=== PATIENT | female | born 1965 | race Caucasian/White ===

== ENCOUNTER 2017-01-08 15:53 | Emergency (ER) | payer OTHER ==
[~2017-01-08] VITALS: Ht 157.5 cm; Wt 63.6 kg
[2017-01-08 15:55] VITALS: Ht 157.5 cm; Wt 63.6 kg
[2017-01-08] MEDS ORDERED: morphine 4 MG/ML VIAL IV STA (16:06)
[2017-01-08] MEDS ORDERED: SOD CHLORIDE 0.9% 1,000 ML IV STA (16:06)
[2017-01-08] MEDS ORDERED: ONDANSETRON 4 MG INJ IV STA (16:06)
[2017-01-08 16:23] LABS: BASOPHIL # 0.1 10^3/ul (0.0-0.1); BASOPHILS % 0.5 % (0.0-2.0); EOSINOPHILS # 0.2 10^3/ul (0.0-0.5); EOSINOPHILS % 1.6 % (0.0-7.0); HEMOGLOBIN 13.5 g/dl (12.0-16.0); LYMPHOCYTES # 4.6 10^3/ul (0.8-2.9); LYMPHOCYTES % 43.3 % (15.0-51.0); MEAN CORPUSCULAR HEMOGLOBIN 27.4 pg (29.0-33.0); MEAN CORPUSCULAR HGB CONC 33.8 g/dl (32.0-37.0); MEAN CORPUSCULAR VOLUME 81.1 fl (82.0-101.0); MEAN PLATELET VOLUME 10.1 fl (7.4-10.4); MONOCYTE # 0.5 10^3/ul (0.3-0.9); MONOCYTES % 4.3 % (0.0-11.0); NEUTROPHIL # 5.3 10^3/ul (1.6-7.5); PLATELET COUNT 324 10^3/UL (140-415); RED BLOOD COUNT 4.93 10^6/ul (4.20-5.40); WHITE BLOOD COUNT 10.6 10^3/ul (4.8-10.8)
[2017-01-08] MEDS ORDERED: METOPROLOL 5 MG INJ IV ONE (16:30)
[2017-01-08 16:45] LABS: ANION GAP 17 (8-16); BLOOD UREA NITROGEN 8 mg/dl (7-20); CALCIUM 9.1 mg/dl (8.4-10.2); CARBON DIOXIDE 24 mmol/L (21-31); CHLORIDE 102 mmol/L (97-110); CREATININE 0.62 mg/dl (0.44-1.00); GLUCOSE 299 mg/dl (70-220); POTASSIUM 3.7 mmol/L (3.5-5.1); SODIUM 139 mmol/L (135-144)
--- NOTE | 2017-01-08 16:46 | RADRPT ---
PROCEDURE: XR Chest. CLINICAL INDICATION: Chest pain. TECHNIQUE: Single frontal view. COMPARISON: None. FINDINGS: The lungs are clear. The heart size is normal. There is no pleural effusion. There is no pneumothorax. IMPRESSION: 1. Normal chest radiograph. RPTAT: QQ .Addy Wilson MD, Date Time Electronically viewed and signed by .Addy Wilson MD, on 01/08/2017 16:46 .R/
[2017-01-08 17:12] LABS: TROPONIN-I < 0.012 ng/ml (0.00-0.12)
[2017-01-08] MEDS ORDERED: SOD CHLORIDE 0.9% 100 ML ONE (17:56)
[2017-01-08] MEDS ORDERED: IODIXANOL LOCM 100 ML BTL ONE (17:56)
--- NOTE | 2017-01-08 18:18 | RADRPT ---
PROCEDURE: CT Pulmonary Angiogram. CLINICAL INDICATION: Chest pain and shortness of breath. TECHNIQUE: CT pulmonary angiogram and a CT scan of the chest with contrast was performed. The pat ient was scanned following the uncomplicated intravenous administration of 100 cc of Visipaque 320 i ntravenous contrast. 2-D coronal reformatted images were obtained from the axial source images. In addition, 3-D post processing was performed. Total exam DLP is 390.87 mGy-cm. CTDIvol is 28.17 mG y. One or more of the following dose reduction techniques were used: Automated exposure control, ad justment of the mA and/or kV according to patient size, use of iterative reconstruction technique. COMPARISON: Chest x-ray done earlier the same day. FINDINGS: The pulmonary arteries are normal with no filling defect or lack of enhancement to suggest pulmonary artery embolism. The lungs are clear. There is no pulmonary airspace or interstitial disease. There is no pulmonary nodule or mass lesion. There is no pneumothorax. There is no mediastinal or hilar lymphadenopathy or mass. There is no pleural effusion. There is no pericardial effusion. The thoracic aorta is normal with no aneurysm or dissection. There is calcification in the aorta con sistent with atherosclerosis. Images through the upper abdomen demonstrate normal visualized portions of the liver, spleen, and ad renals. The osseous structures are normal with no fracture or lytic lesion. IMPRESSION: 1. Normal CT pulmonary angiogram with no evidence of pulmonary artery embolism. 2. Atherosclerosis. 3. Otherwise normal CT scan of the chest. RPTAT: QQ .Addy Wilson MD, Date Time Electronically viewed and signed by .Addy Wilson MD, MD on 01/08/2017 18:18 .R/
--- NOTE | 2017-01-08 18:39 | ERD ---
ER Documentation Chief Complaint Date/Time DATE: 01/08/17 TIME: 18:36 Chief Complaint CP radiating to right arm & ears, HTN, pt took 2nitros just before arrival HPI This is a 51 year-old female with a history of hypertension and diabetes presents to the emergency room for evaluation of high blood pressure, and chest pain. The patient states that she took her medicine this morning however she has been extremely stressed out and came to the emergency room for evaluation of her symptoms. She describes her chest pain as an aching sensation located in the center of her chest with mild radiation to the right arm. She denies any nausea or shortness of breath associated with this and came to the ER for further ROS All systems reviewed and are negative except as per history of present illness. PMhx/Soc History of Surgery: Yes () Anesthesia Reaction: No Hx Neurological Disorder: No Hx Respiratory Disorders: No Hx Cardiac Disorders: Yes (HTN, HIGH CHOLESTEROL, ANGINA) Hx Psychiatric Problems: No Hx Miscellaneous Medical Probl: Yes (DM) Hx Alcohol Use: Yes (SOCIAL) Hx Substance Use: No Hx Tobacco Use: No Smoking Status: Never smoker Physical Exam Vitals Vital Signs Date Time Temp Pulse Resp B/P Pulse Ox O2 Delivery O2 Flow Rate FiO2 01/08/17 17:36 72 16 112/80 99 Room Air 01/08/17 15:55 98.2 124 20 235/126 97 Physical Exam INITIAL VITAL SIGNS: Reviewed by me GENERAL: The patient is well developed and appropriate for usual state of health in no apparent distress HEENT: Pupils equal, round, and reactive to light. EOMI. There is no scleral icterus. NECK: C-spine is soft and supple, there is no meningismus. There is no cervical lymphadenopathy. LUNGS: Clear to auscultation bilaterally. There are no rales, wheezes or rhonchi. HEART: Tachycardic, no murmurs, clicks, rubs or gallops. ABDOMEN: Soft, non-tender, non-distended. There are bowel sounds in all four quadrants. No rebound or guarding. EXTREMITIES: There is no peripheral cyanosis or edema. No focal swelling or erythema. NEUROLOGICAL: The patient moves all four extremities with 5/5 strength. Cranial nerves II - XII are intact. Normal gait. Alert and oriented SKIN: There is no apparent rash or petechiae. HEME/LYMPHATIC: There is no evidence of excessive bruising or lymphedema. PSYCHIATRIC: The patient does not appear anxious or depressed. Result Diagram: 01/08/17 1608 01/08/17 1608 Results 24 hrs Laboratory Tests Test 01/08/17 16:08 White Blood Count 10.610^3/ul Red Blood Count 4.9310^6/ul Hemoglobin 13.5g/dl Hematocrit 40.0% Mean Corpuscular Volume 81.1fl Mean Corpuscular Hemoglobin 27.4pg Mean Corpuscular Hemoglobin Concent 33.8g/dl Red Cell Distribution Width 15.0% Platelet Count 58162^3/UL Mean Platelet Volume 10.1fl Neutrophils % 50.0% Lymphocytes % 43.3% Monocytes % 4.3% Eosinophils % 1.6% Basophils % 0.5% Nucleated Red Blood Cells % 0.0/100WBC Neutrophils # 5.310^3/ul Lymphocytes # 4.610^3/ul Monocytes # 0.510^3/ul Eosinophils # 0.210^3/ul Basophils # 0.110^3/ul Nucleated Red Blood Cells # 0.010^3/ul Activated Partial Thromboplast Time 29.0Sec Sodium Level 139mmol/L Potassium Level 3.7mmol/L Chloride Level 102mmol/L Carbon Dioxide Level 24mmol/L Anion Gap 17 Blood Urea Nitrogen 8mg/dl Creatinine 0.62mg/dl Glucose Level 299mg/dl Calcium Level 9.1mg/dl Troponin I < 0.012ng/ml Lipase 172U/L Current Medications Medications (Trade) Dose Ordered Sig/Deisi Route PRN Reason Start Time Stop Time Status Last Admin Dose Admin Sodium Chloride (NS) 1,000 ml @ 1,000 mls/hr Q1H STAT IV 01/08/17 16:06 01/08/17 17:05 DC 01/08/17 16:15 Morphine Sulfate (morphine) 4 mg ONCE STAT IV 01/08/17 16:06 01/08/17 16:08 DC 01/08/17 16:15 Ondansetron HCl (Zofran Inj) 4 mg ONCE STAT IV 01/08/17 16:06 01/08/17 16:08 DC 01/08/17 16:15 Metoprolol Tartrate (Lopressor) 2.5 mg ONCE ONCE IV 01/08/17 16:30 01/08/17 16:31 DC 01/08/17 16:27 IV Flush 10 ml 10 ml STK-MED ONCE .ROUTE 01/08/17 17:56 01/08/17 17:57 DC 01/08/17 18:06 Sodium Chloride (NS) 100 ml @ ud STK-MED ONCE .ROUTE 01/08/17 17:56 01/08/17 17:57 DC 01/08/17 18:07 Iodixanol (Visipaque Locm) 100 ml STK-MED ONCE .ROUTE 01/08/17 17:56 01/08/17 17:57 DC 01/08/17 18:07 Procedures/MDM EKG: Rate/Rhythm: [Normal Sinus Rhythm] QRS, ST, T-waves: [No changes consistent w/ acute ischemia] Impression: [No evidence of ischemia or arrhythmia] Chest X-ray 1V Interpreted by me: Soft Tissue: No acute abnormalities Bones: No acute abnormalities Mediastinum/Cardiac Silhouette/Lungs: [No acute abnormalities] CT angiography chest: No PE This 51-year-old female presents to the ER for evaluation of chest pain and hypertension. When I evaluated this patient she was hypertensive with a blood pressure 232/108. She was tachycardic with a rate of 126 bpm. She is not hypoxic however she did state that she had recently came back from a bus ride from [place]. This patient did have lab work drawn which did not show an elevated troponin. The patient was given 2.5 mg of Lopressor IV and when I reevaluated this patient the patient's blood pressure was 128/80 and her heart rate was 72 bpm. She states she is feeling much better. His CT angiogram was obtained to rule out pulmonary embolism which came back normal. This patient will be discharged at this time with instructions to return to the ER any point if she develops chest pain. I feel her chest pain is secondary to her uncontrolled hypertension. Departure Diagnosis: Primary Impression: Chest pain Additional Impression: Uncontrolled hypertension Condition: Stable MELANIE MARINELLI DO Jan 08, 2017 18:39
[2017-01-08 18:50] VITALS: BP 169/89; PULSE 79; RESP 14; TEMP 98.2
== END 2017-01-08 18:50 | disposition home or self-care (01) ==
LOC: E/R 15:53
DX: R07.9 Chest pain, unspecified (principal); I10 Essential (primary) hypertension; E11.9 Type 2 diabetes mellitus without complications
CPT/HCPCS: 36415; 71010; 71275; 80048; 83690; 84484; 85025; 85730; 93005; 96374; 96375; J2270; J2405; J7030; Q9967; Z7502; Z7610

== ENCOUNTER 2017-01-13 23:00 | Inpatient (IN) | payer OTHER ==
[~2017-01-13] VITALS: Ht 154.9 cm; Wt 72.4 kg
[2017-01-14] VITALS (16 sets, daily range): BP systolic 131–179; BP diastolic 68–83; PULSE 44–65; RESP 14–19; Ht 154.9 cm; Wt 72.4 kg
[2017-01-14] MEDS ORDERED: NITROGLYCERIN (SL) 0.4 MG TAB SL PRN (02:30)
[2017-01-14] MEDS ORDERED: NACL 0.9% 3 ML SYG IV SCH (02:30)
[2017-01-14] MEDS ORDERED: DOCUSATE SODIUM 100 MG CAP PO PRN (02:30)
[2017-01-14] MEDS ORDERED: ZOLPIDEM 5 MG TAB PO PRN (02:30)
[2017-01-14] MEDS ORDERED: ONDANSETRON 4 MG TAB PO PRN (02:30)
[2017-01-14] MEDS: FAMOTIDINE 20 MG TAB PO SCH ×3 (02:49→20:54)
[2017-01-14] MEDS ORDERED: LANT3I SC (05:08)
[2017-01-14] MEDS ORDERED: ATOR20TA38 PO (05:08)
[2017-01-14] MEDS ORDERED: INSU100C SQ (05:08)
[2017-01-14] MEDS ORDERED: METF850T PO (05:08)
[2017-01-14] MEDS ORDERED: ASPI-664 PO (05:08)
[2017-01-14] MEDS ORDERED: LOSA50TA6 PO (05:08)
[2017-01-14] MEDS ORDERED: NITR0.4T32 SL (05:08)
[2017-01-14] MEDS ORDERED: CLON-379 PO (05:08)
--- NOTE | 2017-01-14 06:49 | HP ---
Date/Time of Note Date/Time of Note DATE: 01/14/17 TIME: 06:44 Assessment/Plan VTE Prophylaxis VTE Prophylaxis Intervention: LMWH Lines/Catheters IV Catheter Type [facility]from [facility] Urinary Cath still in place: No Assessment/Plan Assessment/Plan [facility] 51yo woman with three episodes of chest pressure and associated dyspnea the past week. Never smoked, but has insulin-dependent diabetes. Atypical pain appears to be related to left-sided costochondritis, with poor sleep the past two weeks in relation to her brother's CABG. His experience may have suggested to her the possibility of her having heart disease. No fibromyalgia tender point pattern on exam, but the left chest tenderness appears to reproduce her pain. Nonetheless, her relatively poor control of her diabetes and family history of hyperlipidemia (brother, mother) pose risk for subclinical coronary disease. * Place under telemetry observation * Serial troponins * Cardiology consultation * NPO for possible stress echo * Lipid panel pending * Full-code * Lovenox 40mg SQ for DVT prophylaxis * Accuchecks qAC and qHS * A1c pending * Famotidine PO BID for GI protection Galo Mcadams MD PhD [phone] HPI/ROS Admit Date/Time Admit Date/Time Jan 14, 2017 at 01:10 Hx of Present Illness 51yo woman who developed acute onset of chest pressure and dyspnea at 1600h yesterday while she was outside with her grandchildren. Transported by private car to the [facility] ER at 1723h. EKG showed normal sinus rhythm with no acute ischemic changes. Troponin negative. She was transferred at 0200h today [facility]. Evaluated here with similar symptoms on 01/08/17. CT-angiogram negative for pulmonary embolism then. EKG, troponins normal. She had another episode three days ago, with similar dyspnea and left chest pressure. Resolved completely after one SL nitroglycerine. She mentioned that her oldest brother (age 71) had CABG two weeks ago, which has been very stressful. ROS No nausea, weakness, visual change, or change in sensation. PMH/Family/Social Past Medical History Medical History: diabetes Past Surgical History Past Surgical Hx: other (, resection of a left upper back cyst) Family History Significant Family History: heart disease (71yo brother), hypertension (88yo mother, who also has hyperlipidemia), other (Father at 68 of unknown causes.) Social History She cares for her grandchildren, mostly. Lives with her and 35yo son, both of which are in poor health. Has three other children. Smoking Status: Never smoker Exam/Review of Systems Vital Signs Vitals Vital Signs Date Time Temp Pulse Resp B/P Pulse Ox O2 Delivery O2 Flow Rate FiO2 01/14/17 04:11 61 01/14/17 03:57 99.6 18 150/81 95 01/14/17 01:10 Room Air Exam Constitutional: alert, oriented Psych: anxiety (mild since her brother's surgery), no complaints Head: atraumatic, normocephalic Eyes: EOMI, PERRL, nl conjunctiva, nl sclera ENMT: mucosa pink and moist Neck: non-tender, supple, No bruits, No jvd, No masses, No nuchal rigidity, No thyromegaly Respiratory: clear to auscultation, normal air movement, other (She had mild left chest tenderness over the chondrosternal joints that she said reproduced her pain), No congested cough, No crackles/rales, No diminished breath sounds, No intercostal retraction, No labored breathing, No respirations, No wheezing Cardiovascular: nl pulses, regular rate and rhythm, No bruits, No diastolic murmur, No edema, No gallop, No irregular rhythm, No jugular venous distention (JVD), No murmurs/extra sounds, No rub, No systolic murmur Gastrointestinal: bowel sounds, nl liver, spleen, non-tender, soft, No ascites, No distended, No firm, No hepatomegaly, No mass, No rebound or guarding, No splenomegaly, No surgical scars, No tender Genitourinary - Female: No CVA tenderness Musculoskeletal: muscle tone (normal), nl extremities to inspection, range of motion (Normal), No joint tenderness, No muscle weakness, No spine non-tender, No swelling Extremities: normal pulses, No calf tenderness, No clubbing, No cyanosis, No edema, No palpable cord, No pitting pedal edema, No tenderness Neurological: ENGINE MONITOR II-XII intact, nl mental status, nl speech, nl strength Skin: nl turgor, No diaphoresis, No ecchymosis, No laceration, No puncture, No rash or lesions Lymph: nl lymph nodes Medications Medications Current Medications Ondansetron HCl (Zofran Tab) 4 mg Q6H PRN PO NAUSEA AND/OR VOMITING; Start 01/14/17 at 02:30 Aspirin (Aspirin) 81 mg DAILY PO ; Start 01/14/17 at 09:00 Nitroglycerin (Nitroglycerin (Sl Tab) 0.4 Mg) 1 tab Q5M PRN SL CHEST PAIN; Start 01/14/17 at 02:30 Acetaminophen (Tylenol Tab) 650 mg Q6H PRN PO PAIN LEVEL 1-3 OR FEVER; Start 01/14/17 at 02:30 Acetaminophen/ Hydrocodone Bitart ([place] (5/325)) 1 tab Q6H PRN PO PAIN LEVEL 4 -6; Start 01/14/17 at 02:30 Zolpidem Tartrate (Ambien) 5 mg QHS PRN PO INSOMNIA; Start 01/14/17 at 02:30 Docusate Sodium (Colace) 100 mg Q12H PRN PO CONSTIPATION; Start 01/14/17 at 02: 30 Famotidine (Pepcid) 20 mg Q12 PO Last administered on 01/14/17t 02:49; Admin Dose 20 MG; Start 01/14/17 at 02:30 Enoxaparin Sodium (Lovenox) 40 mg DAILY SC ; Start 01/14/17 at 09:00 Diagnostic Test (Pha) (Accu-Chek) 1 ea 02 XX ; Start 01/15/17 at 02:00 Insulin Glargine (Lantus) 20 unit HS SC ; Start 01/14/17 at 21:00 Losartan Potassium (Cozaar) 50 mg BID PO ; Start 01/14/17 at 09:00 Atorvastatin Calcium (Lipitor) 20 mg HS PO ; Start 01/14/17 at 21:00 Clonidine (Catapres) 0.1 mg BID PO ; Start 01/14/17 at 09:00 MAGED MCADAMS M.D. Jan 14, 2017 06:49
[2017-01-14 07:40] LABS: WHITE BLOOD COUNT 7.3 10^3/ul (4.8-10.8)
[2017-01-14 07:41] LABS: BASOPHILS % 0.4 % (0.0-2.0); EOSINOPHILS # 0.1 10^3/ul (0.0-0.5); EOSINOPHILS % 1.7 % (0.0-7.0); HEMATOCRIT 36.4 % (37.0-47.0); HEMOGLOBIN 12.1 g/dl (12.0-16.0); LYMPHOCYTES # 2.8 10^3/ul (0.8-2.9); LYMPHOCYTES % 37.8 % (15.0-51.0); MEAN CORPUSCULAR HEMOGLOBIN 27.4 pg (29.0-33.0); MEAN CORPUSCULAR HGB CONC 33.2 g/dl (32.0-37.0); MEAN CORPUSCULAR VOLUME 82.5 fl (82.0-101.0); MEAN PLATELET VOLUME 10.4 fl (7.4-10.4); MONOCYTE # 0.4 10^3/ul (0.3-0.9); MONOCYTES % 6.1 % (0.0-11.0); NEUTROPHIL # 3.9 10^3/ul (1.6-7.5); NEUTROPHILS % 53.7 % (39.0-77.0); PLATELET COUNT 281 10^3/UL (140-415); RED BLOOD COUNT 4.41 10^6/ul (4.20-5.40); RED CELL DISTRIBUTION WIDTH 15.3 % (11.5-14.5)
[2017-01-14 07:55] LABS: CREATINE KINASE 48 IU/L (23-200)
[2017-01-14] MEDS: INSULIN ASPART [NOVOLOG] 3 ML PEN SC SCH ×3 (07:55→16:36)
[2017-01-14 07:57] LABS: CALCIUM 8.3 mg/dl (8.4-10.2); CREATININE 0.57 mg/dl (0.44-1.00); POTASSIUM 3.7 mmol/L (3.5-5.1)
[2017-01-14 08:08] LABS: CK-MB 0.59 ng/ml (0.0-2.4); TROPONIN-I < 0.012 ng/ml (0.00-0.12)
[2017-01-14 08:09] LABS: CHOL/HDL RATIO 2.3 RATIO
[2017-01-14 08:21] LABS: INR 1.04; PROTIME 13.6 Sec (12.2-14.2); PT RATIO 1.1
[2017-01-14 08:22] LABS: PARTIAL THROMBOPLASTIN TIME 33.2 Sec (25.0-35.0)
[2017-01-14 08:32] LABS: D-DIMER 303.4 ng/ml (<460)
[2017-01-14] MEDS: ASPIRIN 81 MG TAB PO SCH (08:42)
[2017-01-14] MEDS: LOSARTAN 50 MG TAB PO SCH ×2 (08:43→20:55)
[2017-01-14 08:48] LABS: THYROID STIMULATING HORMONE 2.55 MIU/L (0.465-4.680)
[2017-01-14] MEDS: ENOXAPARIN 40 MG/0.4 ML SYG SC SCH (08:52)
[2017-01-14 11:12] LABS: UR BACTERIA FEW /HPF (NONE SEEN); UR MUCUS FEW /HPF (NONE SEEN); UR RBC 1 /HPF (0-5); UR SQUAMOUS EPITHELIAL CELL FEW /HPF (FEW)
[2017-01-14 11:21] LABS: ADD UMIC YES; UR ASCORBIC ACID 20 mg/dL (NEGATIVE); UR BILIRUBIN (Dip) NEGATIVE (NEGATIVE); UR BLOOD (Dip) NEGATIVE (NEGATIVE); UR CLARITY CLOUDY (CLEAR); UR COLOR YELLOW (YELLOW); UR GLUCOSE (Dip) 3+ mg/dL (NEGATIVE); UR KETONES (Dip) NEGATIVE (NEGATIVE); UR LEUKOCYTE ESTERASE (Dip) TRACE Leu/ul (NEGATIVE); UR NITRITE (Dip) POSITIVE (NEGATIVE); UR SPECIFIC GRAVITY (Dip) 1.014 (1.003-1.030); UR TOTAL PROTEIN (Dip) NEGATIVE (NEGATIVE); UR UROBILINOGEN (Dip) NEGATIVE (NEGATIVE)
[2017-01-14 13:24] LABS: CREATINE KINASE 47 IU/L (23-200)
[2017-01-14 13:37] LABS: CK-MB 0.46 ng/ml (0.0-2.4)
[2017-01-14 13:38] LABS: TROPONIN-I < 0.012 ng/ml (0.00-0.12)
[2017-01-14] MEDS: metFORMIN 850 MG TAB PO SCH (17:46)
--- NOTE | 2017-01-14 19:14 | PDOCDIS ---
Discharge Instructions DIAGNOSIS Discharge Diagnosis Left-chest costochondritis CONDITION Patient Condition: Good HOME CARE INSTRUCTIONS: Diet Instructions: 2gm NaSpecial Diet: NPO ACTIVITY: Activity Restrictions: Slowly Increase Activity FOLLOW UP/APPOINTMENTS Follow-up Plan PCP in the next week MAGED BOWER M.D. Jan 14, 2017 19:14
[2017-01-14] MEDS: HYDROCODONE/APAP (5/325) TAB PO PRN (20:55)
[2017-01-14] MEDS: INSULIN GLARGINE [LANtus] 3 ML PEN SC SCH (21:57)
[2017-01-14] MEDS: ATORVASTATIN 20 MG TAB PO SCH (21:58)
[2017-01-15] VITALS (13 sets, daily range): BP systolic 101–155; BP diastolic 58–89; PULSE 59–85; RESP 18–19
[2017-01-15] MEDS: ACCU-CHEK XX SCH (02:05)
[2017-01-15 06:42] LABS: PARTIAL THROMBOPLASTIN TIME 32.3 Sec (25.0-35.0)
[2017-01-15 07:05] LABS: INR 1.03; PROTIME 13.5 Sec (12.2-14.2); PT RATIO 1.1
[2017-01-15] MEDS: INSULIN ASPART [NOVOLOG] 3 ML PEN SC SCH ×3 (07:55→17:04)
[2017-01-15] MEDS: metFORMIN 850 MG TAB PO SCH ×2 (08:49→16:55)
[2017-01-15] MEDS: LOSARTAN 50 MG TAB PO SCH ×2 (08:49→20:23)
[2017-01-15] MEDS: ASPIRIN 81 MG TAB PO SCH (08:49)
[2017-01-15] MEDS: FAMOTIDINE 20 MG TAB PO SCH ×2 (08:50→20:24)
[2017-01-15] MEDS: ENOXAPARIN 40 MG/0.4 ML SYG SC SCH (09:01)
[2017-01-15 10:35] LABS: BASOPHIL # 0.1 10^3/ul (0.0-0.1); BASOPHILS % 0.6 % (0.0-2.0); EOSINOPHILS # 0.2 10^3/ul (0.0-0.5); EOSINOPHILS % 1.9 % (0.0-7.0); HEMATOCRIT 37.1 % (37.0-47.0); HEMOGLOBIN 12.1 g/dl (12.0-16.0); LYMPHOCYTES # 2.8 10^3/ul (0.8-2.9); LYMPHOCYTES % 35.6 % (15.0-51.0); MEAN CORPUSCULAR HEMOGLOBIN 27.5 pg (29.0-33.0); MEAN CORPUSCULAR HGB CONC 32.6 g/dl (32.0-37.0); MEAN CORPUSCULAR VOLUME 84.3 fl (82.0-101.0); MEAN PLATELET VOLUME 10.7 fl (7.4-10.4); MONOCYTE # 0.5 10^3/ul (0.3-0.9); MONOCYTES % 6.2 % (0.0-11.0); NEUTROPHIL # 4.4 10^3/ul (1.6-7.5); NEUTROPHILS % 55.4 % (39.0-77.0); PLATELET COUNT 296 10^3/UL (140-415); RED CELL DISTRIBUTION WIDTH 15.3 % (11.5-14.5); WHITE BLOOD COUNT 7.9 10^3/ul (4.8-10.8)
[2017-01-15 11:44] LABS: ANION GAP 10 (8-16); BLOOD UREA NITROGEN 10 mg/dl (7-20); CALCIUM 8.6 mg/dl (8.4-10.2); CARBON DIOXIDE 27 mmol/L (21-31); CHLORIDE 104 mmol/L (97-110); CREATININE 0.55 mg/dl (0.44-1.00); GLUCOSE 212 mg/dl (70-220); POTASSIUM 3.8 mmol/L (3.5-5.1); SODIUM 137 mmol/L (135-144)
[2017-01-15] MEDS ORDERED: NITROGLYCERIN 2% 1 GM OINT PKT TD SCH (12:00)
[2017-01-15 12:02] LABS: TROPONIN-I < 0.012 ng/ml (0.00-0.12)
--- NOTE | 2017-01-15 16:25 | CONS ---
Date/Time of Note Date/Time of Note DATE: 01/15/17 TIME: 16:20 Assessment/Plan Assessment/Plan Additional Assessment/Plan Atypical chest pain with cardiac risk factors Musculoskeletal pain/Costochondritis Hypertensive Urgency resolved Diabetes Hypertension Dyslipidemia Started on Imdur Continue losartan Continue Clonidine Continue Insulin Continue Lipitor Scheduled for stress test AM and discharge of negative for ischemia Consultation Date/Type/Reason Admit Date/Time Jan 14, 2017 at 01:10 Initial Consult Date Exam/Review of Systems Vital Signs Vitals Vital Signs Date Time Temp Pulse Resp B/P Pulse Ox O2 Delivery O2 Flow Rate FiO2 01/15/17 16:11 73 01/15/17 13:40 98.0 18 155/89 98 01/14/17 01:10 Room Air Intake and Output 01/14/17 01/14/17 01/15/17 15:00 23:00 07:00 Intake Total 600 ml Balance 600 ml Exam Constitutional: alert, oriented Head: atraumatic, normocephalic Neck: non-tender, supple Respiratory: clear to auscultation Cardiovascular: regular rate and rhythm Gastrointestinal: nl liver, spleen, non-tender, soft Extremities: normal pulses Results Result Diagram: 01/15/17 0549 01/15/17 1052 Results 24 hrs Laboratory Tests Test 01/14/17 16:32 01/14/17 20:52 01/15/17 05:49 01/15/17 05:51 Bedside Glucose 236 H 180 White Blood Count 7.9 Red Blood Count 4.40 Hemoglobin 12.1 Hematocrit 37.1 Mean Corpuscular Volume 84.3 Mean Corpuscular Hemoglobin 27.5 L Mean Corpuscular Hemoglobin Concent 32.6 Red Cell Distribution Width 15.3 H Platelet Count 296 Mean Platelet Volume 10.7 H Neutrophils % 55.4 Lymphocytes % 35.6 Monocytes % 6.2 Eosinophils % 1.9 Basophils % 0.6 Nucleated Red Blood Cells % 0.0 Neutrophils # 4.4 Lymphocytes # 2.8 Monocytes # 0.5 Eosinophils # 0.2 Basophils # 0.1 Nucleated Red Blood Cells # 0.0 Erythrocyte Sedimentation Rate 10 Prothrombin Time 13.5 Prothrombin Time Ratio 1.1 INR International Normalized Ratio 1.03 Activated Partial Thromboplast Time 32.3 Test 01/15/17 08:27 01/15/17 10:52 01/15/17 12:46 Bedside Glucose 125 195 Sodium Level 137 Potassium Level 3.8 Chloride Level 104 Carbon Dioxide Level 27 Anion Gap 10 Blood Urea Nitrogen 10 Creatinine 0.55 Glucose Level 212 Calcium Level 8.6 Troponin I < 0.012 Medications Medications Current Medications Ondansetron HCl (Zofran Tab) 4 mg Q6H PRN PO NAUSEA AND/OR VOMITING; Start 01/14/17 at 02:30 Aspirin (Aspirin) 81 mg DAILY PO Last administered on 01/15/17 08:49; Admin Dose 81 MG; Start 01/14/17 at 09:00 Nitroglycerin (Nitroglycerin (Sl Tab) 0.4 Mg) 1 tab Q5M PRN SL CHEST PAIN; Start 01/14/17 at 02:30 Acetaminophen (Tylenol Tab) 650 mg Q6H PRN PO PAIN LEVEL 1-3 OR FEVER; Start 01/14/17 at 02:30 Acetaminophen/ Hydrocodone Bitart ([place] (5/325)) 1 tab Q6H PRN PO PAIN LEVEL 4 -6 Last administered on 01/14/17 20:55; Admin Dose 1 TAB; Start 01/14/17 at 02: 30 Zolpidem Tartrate (Ambien) 5 mg QHS PRN PO INSOMNIA; Start 01/14/17 at 02:30 Docusate Sodium (Colace) 100 mg Q12H PRN PO CONSTIPATION; Start 01/14/17 at 02: 30 Famotidine (Pepcid) 20 mg Q12 PO Last administered on 01/15/17 08:50; Admin Dose 20 MG; Start 01/14/17 at 02:30 Enoxaparin Sodium (Lovenox) 40 mg DAILY SC Last administered on 01/15/17 09:01 ; Admin Dose 40 MG; Start 01/14/17 at 09:00 Diagnostic Test (Pha) (Accu-Chek) 1 ea 02 XX Last administered on 01/15/17 02: 05; Admin Dose 1 EA; Start 01/15/17 at 02:00 Insulin Glargine (Lantus) 20 unit HS SC Last administered on 01/14/17 21:57; Admin Dose 20 UNIT; Start 01/14/17 at 21:00 Losartan Potassium (Cozaar) 50 mg BID PO Last administered on 01/15/17 08:49; Admin Dose 50 MG; Start 01/14/17 at 09:00 Atorvastatin Calcium (Lipitor) 20 mg HS PO Last administered on 01/14/17 21:58 ; Admin Dose 20 MG; Start 01/14/17 at 21:00 Clonidine (Catapres) 0.1 mg BID PO Last administered on 01/15/17 08:49; Admin Dose 0.1 MG; Start 01/14/17 at 09:00 Nitroglycerin (Nitroglycerin 2% Oint) 0.5 inch Q6 TD ; Start 01/15/17 at 12:00 NNEKA THOMPSON M.D. Jan 15, 2017 16:25
[2017-01-15] MEDS: ISOSORBIDE MONONITRATE(SR)30 MG TAB PO SCH (16:55)
--- NOTE | 2017-01-15 17:30 | RADRPT ---
Echocardiogram Report Patient Name: MARTHA ANGEL Gender: Female Date: 1965 Study Date: 15-Jan-2017 Skein Yarn Dyer: Seamus [facility] Location: [address] Ref. Physician: GLENN THOMPSON Quality: Adequate Procedures: Transthoracic echocardiogram with complete 2D, M-Mode, and doppler examination. Indications: Chest Pain. 2D/M Mode Doppler Measurement Value Normal Ranges Measurement Value Normal Ranges LVIDd 2D 3.8 3.5 - 5.6 cm AV Peak Leander 1.5 m/sec LVIDs 2D 2.5 2.1 - 4.1 cm AV Peak PG 9.0 mmHg FS 2D 35.8 % LVOT Peak Leander 1.1 m/sec LVPWd 2D 1.3 0.6 - 1.1 cm LVOT Peak PG 5.0 mmHg IVSd 2D 1.3 0.6 - 1.1 cm MV E Peak Leander 0.7 m/sec IVS/LVPW 2D 1.0 MV A Peak Leander 1.0 m/sec AoR Diam 2D 2.8 2.0 - 3.7 cm MV E/A 0.7 LA/Ao 2D 1 0 - 1 MV Decel Time 151 msec EDV 2D 57.1 cm3 MV E/A 0.7 ESV 2D 15.1 cm3 TR Peak Leander 1.9 m/sec LA Dimen 2D 3.1 2.3 - 4.0 cm TR Peak PG 14.0 mmHg RVSP 17.0 mmHg Findings Left Ventricle: Normal left ventricular systolic function. Normal left ventricular cavity size. Mild concentric left ventricular hypertrophy. Ejection fraction is visually estimated at 65 %. Abnormal Diastolic Function. Right Ventricle: Normal right ventricular size. Normal right ventricular systolic function. Left Atrium: The left atrium is normal in size. Right Atrium: The right atrium is normal in size. Mitral Valve: Mild mitral leaflet calcification. Mild mitral annular calcification. Trace mitral regurgitation. Aortic Valve: Normal appearance of the aortic valve. No significant aortic stenosis or insufficiency. Tricuspid Valve: Normal appearance of the tricuspid valve. Estimated peak PA systolic pressure 17 mmHg. There is trace tricuspid regurgitation. Pulmonic Valve: Pulmonic valve not well visualized. There is trace pulmonic regurgitation. Pericardium: Normal pericardium with no significant pericardial effusion. Aorta: Normal aortic root. IVC: Normal size and normal respiratory collapse consistent with normal right atrial pressure. Conclusions 1.Normal left ventricular systolic function. Normal left ventricular cavity size. Mild concentric left ventricular hypertrophy. Ejection fraction is visually estimated at 65 %. Abnormal Diastolic Function. 2.Normal right ventricular size. Normal right ventricular systolic function. 3.Mild mitral leaflet calcification. Mild mitral annular calcification. Trace mitral regurgitation. 4.Normal appearance of the aortic valve. No significant aortic stenosis or insufficiency. 5.Normal appearance of the tricuspid valve. Estimated peak PA systolic pressure 17 mmHg. There is trace tricuspid regurgitation. 6.Normal pericardium with no significant pericardial effusion. Electronically Signed By: Glenn Thompson 15-Jan-2017 17:29:13 -0700 Patient Name: MARTHA ANGEL Study Date: 15-Jan-2017 [id number]
[2017-01-15] MEDS: ACETAMINOPHEN 325 MG TAB PO PRN (17:33)
[2017-01-15] MEDS ORDERED: NAPR375T2 PO (18:39)
--- NOTE | 2017-01-15 18:45 | DS ---
Date/Time of Note Date/Time of Note DATE: 01/15/17 TIME: 18:40 Discharge Summary Admission/Discharge Info Admit Date/Time Jan 14, 2017 at 01:10 Discharge Date/Time Jan 15, 2017 Discharge Diagnosis Left-chest costochondritis Patient Condition: Good Consults Glenn Hubbard MD (cardiology) Procedures Echocardiogram, portable CXR Hx of Present Illness 51yo woman who developed acute onset of chest pressure and dyspnea at 1600h two days ago while she was outside with her grandchildren. Transported by private car to the [facility] ER at 1723h Monday night. EKG showed normal sinus rhythm with no acute ischemic changes. Troponin negative. She was transferred at 0200h yesterday to [facility] for direct admission. Evaluated here with similar symptoms on 01/08/17. CT-angiogram negative for pulmonary embolism then. EKG, troponins normal. She had another episode three days ago, with similar dyspnea and left chest pressure. Resolved completely after one SL nitroglycerine. She mentioned that her oldest brother (age 71) had CABG two weeks ago, which has been very stressful. Hospital Course She had serial troponins that were negative. She was pain-free while in the hospital until this morning. She had echocardiography yesterday that showed: 1. Normal left ventricular systolic function. Normal left ventricular cavity size. Mild concentric left ventricular hypertrophy. Ejection fraction is visually estimated at 65 %. Abnormal Diastolic Function. 2. Normal right ventricular size. Normal right ventricular systolic function. 3. Mild mitral leaflet calcification. Mild mitral annular calcification. Trace mitral regurgitation. 4. Normal appearance of the aortic valve. No significant aortic stenosis or insufficiency. 5. Normal appearance of the tricuspid valve. Estimated peak PA systolic pressure 17 mmHg. There is trace tricuspid regurgitation. 6. Normal pericardium with no significant pericardial effusion. On exam yesterday morning, she demonstrated moderate left chest tenderness that reproduced her pain. She did have brief chest discomfort after walking around the floor, with mild dyspnea. But this resolved spontaneously, and she again indicated that palpation of the left chest reproduced the pain. I think this represents a costochondritis, perhaps exacerbated by her recent anxiety and poor sleep the last two weeks. Dr. Hubbard felt that she was safe to be discharged home with cardiology follow-up as an outpatient. Home Meds Active Scripts Naproxen (Ec-Naprosyn) 375 Mg Tablet., 375 MG PO BID Y for musculoskeletal chest pain, #60 Prov:MAGED BOWER M.D. 01/15/17 Reported Medications Losartan Potassium* (Losartan Potassium*) 50 Mg Tablet, 50 MG PO BID, TAB 01/14/17 Insulin Lispro (Humalog) 100 Unit/1 Ml Cartridge, 10 UNIT SQ WITH MEALS 01/14/17 Insulin Glargine* (Lantus*) 100 Unit/Ml Soln, 20 UNIT SC HS 01/14/17 Nitroglycerin* (Nitroglycerin* SL) 0.4 Mg Tab.subl, 0.4 MG SL Q5MIN Y for CHEST PAIN 01/14/17 Metformin Hcl* (Metformin Hcl*) 850 Mg Tablet, 850 MG PO WITH BREAKFAST DINNE 01/14/17 Clonidine Hcl* (Clonidine Hcl*) 0.1 Mg Tab, 0.1 MG PO BID, TAB 01/14/17 Atorvastatin Calcium* (Atorvastatin Calcium*) 20 Mg Tablet, 20 MG PO QHS 01/14/17 Aspirin* (Aspirin* EC) 81 Mg Tablet., 81 MG PO DAILY, TAB 01/14/17 Follow-up Plan PCP in the next week, and we will make arrangements for a cardiology consultation as an outpatient for possible stress testing in light of her diabetes and family history of coronary disease. Her is coming this evening to pick her up from the hospital. Primary Care Provider Anahi Lockhart MD Time spent on discharge: > 30 minutes Pending Labs Laboratory Tests Test 01/14/17 20:52 01/15/17 05:49 01/15/17 05:51 01/15/17 08:27 Bedside Glucose 180mg/dL (70-220) 125mg/dL (70-220) White Blood Count 7.910^3/ul (4.8-10.8) Red Blood Count 4.4010^6/ul (4.20-5.40) Hemoglobin 12.1g/dl (12.0-16.0) Hematocrit 37.1% (37.0-47.0) Mean Corpuscular Volume 84.3fl (82.0-101.0) Mean Corpuscular Hemoglobin 27.5pg (29.0-33.0) Mean Corpuscular Hemoglobin Concent 32.6g/dl (32.0-37.0) Red Cell Distribution Width 15.3% (11.5-14.5) Platelet Count 45443^3/UL (140-415) Mean Platelet Volume 10.7fl (7.4-10.4) Neutrophils % 55.4% (39.0-77.0) Lymphocytes % 35.6% (15.0-51.0) Monocytes % 6.2% (0.0-11.0) Eosinophils % 1.9% (0.0-7.0) Basophils % 0.6% (0.0-2.0) Nucleated Red Blood Cells % 0.0/100WBC (0.0-0.0) Neutrophils # 4.410^3/ul (1.6-7.5) Lymphocytes # 2.810^3/ul (0.8-2.9) Monocytes # 0.510^3/ul (0.3-0.9) Eosinophils # 0.210^3/ul (0.0-0.5) Basophils # 0.110^3/ul (0.0-0.1) Nucleated Red Blood Cells # 0.010^3/ul (0.0-0.0) Erythrocyte Sedimentation Rate 10mm/Hr (0-30) Prothrombin Time 13.5Sec (12.2-14.2) Prothrombin Time Ratio 1.1 INR International Normalized Ratio 1.03 Activated Partial Thromboplast Time 32.3Sec (25.0-35.0) Test 01/15/17 10:52 01/15/17 12:46 01/15/17 16:57 Sodium Level 137mmol/L (135-144) Potassium Level 3.8mmol/L (3.5-5.1) Chloride Level 104mmol/L (97-110) Carbon Dioxide Level 27mmol/L (21-31) Anion Gap 10 (8-16) Blood Urea Nitrogen 10mg/dl (7-20) Creatinine 0.55mg/dl (0.44-1.00) Glucose Level 212mg/dl (70-220) Calcium Level 8.6mg/dl (8.4-10.2) Troponin I < 0.012ng/ml (0.00-0.12) Bedside Glucose 195mg/dL (70-220) 121mg/dL (70-220) MAGED BOWER M.D. Jan 15, 2017 18:45
[2017-01-15] MEDS: ATORVASTATIN 20 MG TAB PO SCH (20:23)
[2017-01-15] MEDS: METOPROLOL 25 MG TAB PO SCH (20:24)
[2017-01-15] MEDS: INSULIN GLARGINE [LANtus] 3 ML PEN SC SCH (20:37)
[2017-01-16] VITALS (15 sets, daily range): BP systolic 105–177; BP diastolic 58–95; PULSE 57–100; RESP 17–20
[2017-01-16] MEDS: ACCU-CHEK XX SCH (01:58)
[2017-01-16] MEDS: HYDROCODONE/APAP (5/325) TAB PO PRN (05:39)
[2017-01-16] MEDS ORDERED: hydrALAzine 20 MG INJ IV STA (06:49)
--- NOTE | 2017-01-16 06:55 | CONS ---
DATE OF ADMISSION: 01/14/2017 DATE OF CONSULTATION: 01/14/2017 Thank you, Dr. Mcadams, for allowing me to participate in taking care of your patient. REASON FOR CONSULTATION: Chest pain. HISTORY OF PRESENT ILLNESS: The patient is a 51-year-old female who comes in with chest pain since 4:00 p.m. yesterday which she says is constant, localized to the substernal region, nonradiating, as sociated with shortness of breath, denies dizziness or palpitations. Complains of headache and blur ry vision, denies nausea or vomiting. In the ER, systolic blood pressure was 204 mmHg. PAST MEDICAL HISTORY: Significant for hypertension, diabetes, dyslipidemia and family history of my ocardial infarction. SOCIAL HISTORY: No smoking, alcohol or recreational drugs. ALLERGIES: PENICILLIN. CURRENT MEDICATIONS: Include: 1. Losartan. 2. Clonidine. 3. Insulin. 4. Aspirin. 5. Lovenox. 6. Lipitor. 7. Pepcid. 8. Metformin. REVIEW OF SYSTEMS: Unremarkable except as mentioned in the HPI. PHYSICAL EXAMINATION: VITAL SIGNS: Temperature is 98, heart rate of 57, blood pressure 136/35 mmHg, breathing at 18 and s aturating 98%. GENERAL: The patient awake, alert and oriented, no apparent distress. NECK: No JVD or carotid bruit. CARDIOVASCULAR: Regular rate and rhythm; no murmur, rub or gallop. LUNGS: Clear to auscultation. ABDOMEN: Soft. Bowel sounds are present. There is no organomegaly. EXTREMITIES: No pedal edema. DIAGNOSTIC STUDIES: 1. No EKG was found on the chart. A stat EKG has been ordered. 2. Chest x-ray shows no congestion or infiltrates, no cardiomegaly. 3. CTA shows no evidence of pulmonary embolism. LABORATORY DATA: WBC 7.3, hemoglobin 12.1, hematocrit 36.4 with a platelet of 281. Sodium 139, pot assium 3.7, chloride 106,CO2 of 27, BUN 10, creatinine 0.7. Troponin x2 is negative. TSH 2.5, tota l cholesterol 124, LDL 56, HDL 53, triglycerides 77. ASSESSMENT AND PLAN: A 51-year-old female with: 1. Atypical chest pain, likely costochondritis since it is tender to palpation at the costochondral junction. 2. Hypertensive urgency/emergency. 3. Dyslipidemia. 4. Insulin-dependent diabetes mellitus. 5. Obesity. 6. She has been ruled out for acute coronary syndrome with serial negative troponins. RECOMMENDATIONS: 1. EKG stat. 2. Trend troponins, BNP. 3. Echocardiogram to assess for structural heart disease and assess for systolic function. 4. Avoid AV shahbaz blockers symptomatic bradycardia. 5. Continue losartan and clonidine. 6. Continue aspirin. 7. Continue insulin. 8. Continue Lipitor. 9. Continue GI and DVT prophylaxis 10. Further recommendation after review of echocardiogram. Dictated By: NNEKA THOMPSON MD SR/NTS Conf#: [id number] DID#: [id number] CC: MAGED MCADAMS;*End*
[2017-01-16 06:57] LABS: INR 0.95; PROTIME 12.7 Sec (12.2-14.2)
[2017-01-16 06:58] LABS: PARTIAL THROMBOPLASTIN TIME 38.7 Sec (25.0-35.0)
[2017-01-16] MEDS ORDERED: hydrALAzine 20 MG INJ IV ONE (07:00)
[2017-01-16] MEDS: ASPIRIN 81 MG TAB PO SCH (07:11)
[2017-01-16] MEDS: metFORMIN 850 MG TAB PO SCH ×2 (07:12→18:03)
[2017-01-16] MEDS: INSULIN ASPART [NOVOLOG] 3 ML PEN SC SCH ×3 (07:55→18:13)
[2017-01-16] MEDS: ISOSORBIDE MONONITRATE(SR)30 MG TAB PO SCH (09:08)
[2017-01-16] MEDS: METOPROLOL 25 MG TAB PO SCH (09:08)
[2017-01-16] MEDS: FAMOTIDINE 20 MG TAB PO SCH ×2 (09:09→20:31)
[2017-01-16] MEDS: ENOXAPARIN 40 MG/0.4 ML SYG SC SCH (09:16)
[2017-01-16] MEDS: LOSARTAN 50 MG TAB PO SCH (09:19)
[2017-01-16] MEDS: AMLODIPINE 10 MG TAB PO SCH (10:23)
[2017-01-16] MEDS: ACETAMINOPHEN 325 MG TAB PO PRN ×3 (11:28→20:27)
--- NOTE | 2017-01-16 12:53 | CONS ---
Date/Time of Note Date/Time of Note DATE: 01/16/17 TIME: 12:43 Assessment/Plan Assessment/Plan Chief Complaint/Hosp Course ASSESSMENT: 1. Chest pain-negative trop x3/NL EF 2. Hypertensive urgency/emergency. 3. Dyslipidemia. 4. Insulin-dependent diabetes mellitus. 5. Obesity. 6.Pause-x 4.6 seconds REcc: -Tele -serial ecg's -Hold BB given -Continue norvasc/losartan/imdur -Lexiscan stress test today -Follow for recurrent pause -cehck TSH Problems: Consultation Date/Type/Reason Admit Date/Time Jan 14, 2017 at 01:10 Initial Consult Date 01/14/2017 Type of Consultation: Cardiology Reason for Consultation Chest pain Referring Provider: MAGED BOWER M.D. Exam/Review of Systems Vital Signs Vitals Vital Signs Date Time Temp Pulse Resp B/P Pulse Ox O2 Delivery O2 Flow Rate FiO2 01/16/17 12:07 86 01/16/17 11:54 105/58 01/16/17 07:50 98.3 20 95 01/14/17 01:10 Room Air Intake and Output 01/15/17 01/15/17 01/16/17 15:00 23:00 07:00 Intake Total 800 ml Balance 800 ml Exam Review of Systems: CONSTITUTIONAL: No fevers, chills. PULMONARY: No sob CARDIOVASCULAR: Positive chest pain GASTROINTESTINAL: No nausea/vomiting. GENITOURINARY: No hematuria/dysuria. MUSCULOSKELETAL: No myagias/arthalgias. PSYCHIATRIC: The patient denies depression. NEUROLOGIC: Headache Constitutional: alert Psych: no complaints Head: normocephalic ENMT: mucosa pink and moist Neck: jvd (9 cm water), supple Respiratory: diminished breath sounds (at bases/B) Cardiovascular: regular rate and rhythm Gastrointestinal: non-tender, soft Musculoskeletal: muscle tone (normal) Extremities: edema (none) Neurological: other (No focal deficits) Results Result Diagram: 01/15/17 0549 01/15/17 1052 Results 24 hrs Laboratory Tests Test 01/15/17 12:46 01/15/17 16:57 01/15/17 20:22 01/16/17 05:28 Bedside Glucose 195 121 87 Prothrombin Time 12.7 Prothrombin Time Ratio 1.0 INR International Normalized Ratio 0.95 Activated Partial Thromboplast Time 38.7 H Test 01/16/17 08:15 01/16/17 11:50 Bedside Glucose 199 158 Medications Medications Current Medications Ondansetron HCl (Zofran Tab) 4 mg Q6H PRN PO NAUSEA AND/OR VOMITING Last administered on 01/16/17 09:20; Admin Dose 4 MG; Start 01/14/17 at 02:30 Aspirin (Aspirin) 81 mg DAILY PO Last administered on 01/16/17 07:11; Admin Dose 81 MG; Start 01/14/17 at 09:00 Nitroglycerin (Nitroglycerin (Sl Tab) 0.4 Mg) 1 tab Q5M PRN SL CHEST PAIN Last administered on 01/16/17 11:49; Admin Dose 1 TAB; Start 01/14/17 at 02:30 Acetaminophen (Tylenol Tab) 650 mg Q6H PRN PO PAIN LEVEL 1-3 OR FEVER Last administered on 01/16/17 11:28; Admin Dose 650 MG; Start 01/14/17 at 02:30 Acetaminophen/ Hydrocodone Bitart ([place] (5/325)) 1 tab Q6H PRN PO PAIN LEVEL 4 -6 Last administered on 01/16/17 05:39; Admin Dose 1 TAB; Start 01/14/17 at 02: 30 Zolpidem Tartrate (Ambien) 5 mg QHS PRN PO INSOMNIA; Start 01/14/17 at 02:30 Docusate Sodium (Colace) 100 mg Q12H PRN PO CONSTIPATION; Start 01/14/17 at 02: 30 Famotidine (Pepcid) 20 mg Q12 PO Last administered on 01/16/17 09:09; Admin Dose 20 MG; Start 01/14/17 at 02:30 Enoxaparin Sodium (Lovenox) 40 mg DAILY SC Last administered on 01/16/17 09:16 ; Admin Dose 40 MG; Start 01/14/17 at 09:00 Diagnostic Test (Pha) (Accu-Chek) 1 ea 02 XX Last administered on 01/15/17 02: 05; Admin Dose 1 EA; Start 01/15/17 at 02:00 Insulin Glargine (Lantus) 20 unit HS SC Last administered on 01/15/17 20:37; Admin Dose 20 UNIT; Start 01/14/17 at 21:00 Atorvastatin Calcium (Lipitor) 20 mg HS PO Last administered on 01/15/17 20:23 ; Admin Dose 20 MG; Start 01/14/17 at 21:00 Clonidine (Catapres) 0.1 mg BID PO Last administered on 01/16/17 09:09; Admin Dose 0.1 MG; Start 01/14/17 at 09:00 Isosorbide Mononitrate (Imdur) 30 mg DAILY PO Last administered on 01/16/17 09 :08; Admin Dose 30 MG; Start 01/15/17 at 16:30 Metoprolol Tartrate (Lopressor) 25 mg BID PO Last administered on 01/16/17 09: 08; Admin Dose 25 MG; Start 01/15/17 at 21:00 Losartan Potassium (Cozaar) 100 mg DAILY PO ; Start 01/17/17 at 09:00 Amlodipine Besylate (Norvasc) 10 mg DAILY PO Last administered on 01/16/17 10: 23; Admin Dose 10 MG; Start 01/16/17 at 09:30 SARITHA ALANIS Jan 16, 2017 12:53
--- NOTE | 2017-01-16 12:59 | PN ---
Date/Time of Note Date/Time of Note DATE: 01/16/17 TIME: 12:26 Assessment/Plan VTE Prophylaxis VTE Prophylaxis Intervention: LMWH Lines/Catheters IV Catheter Type (from Nrs): Saline Lock Urinary Cath still in place: No Assessment/Plan Assessment/Plan 51 yo female with: 1. Chest Pressure, patient still had an episode overnight and also reported 4.6 secs pause, hold b-block and stress test today Appreciate recs from Cardiology BP control but holding Bblock Statins and ASA Check BMP and Mag pending today Monitor post stress test 2. Hypertension: continue current meds except Bblock 3. Hyperlipidemia: statins 4. Diabetes Mellitus: continue current meds, A1c 9.6 ADA diet Prophylaxis: Lovenox for DVT ppx and Pepcid for GI ppx Disposition: Follow up stress test results today and monitoring off Bblock Subjective 24 Hr Interval Summary Free Text/Dictation Patient doing OK today but it was noted a 4 sec pause overnight Some chest pressure On B-Block and all w/u so far neg. Stress test today Exam/Review of Systems Vital Signs Vitals Vital Signs Date Time Temp Pulse Resp B/P Pulse Ox O2 Delivery O2 Flow Rate FiO2 01/16/17 12:07 86 01/16/17 11:54 105/58 01/16/17 07:50 98.3 20 95 01/14/17 01:10 Room Air Intake and Output 01/15/17 01/15/17 01/16/17 15:00 23:00 07:00 Intake Total 800 ml Balance 800 ml Exam Constitutional: alert, oriented, well developed Cardiovascular: nl pulses, regular rate and rhythm Gastrointestinal: non-tender, soft Musculoskeletal: nl extremities to inspection Extremities: normal pulses, other (no edema, clubbing or cyanosis ) Neurological: DROP BOARD MAN II-XII intact, nl mental status, nl speech, nl strength Results Result Diagram: 01/15/17 0549 01/15/17 1052 Results 24 hrs Laboratory Tests Test 01/15/17 12:46 01/15/17 16:57 01/15/17 20:22 01/16/17 05:28 Bedside Glucose 195 121 87 Prothrombin Time 12.7 Prothrombin Time Ratio 1.0 INR International Normalized Ratio 0.95 Activated Partial Thromboplast Time 38.7 H Test 01/16/17 08:15 01/16/17 11:50 Bedside Glucose 199 158 Medications Medications Current Medications Ondansetron HCl (Zofran Tab) 4 mg Q6H PRN PO NAUSEA AND/OR VOMITING Last administered on 01/16/17 09:20; Admin Dose 4 MG; Start 01/14/17 at 02:30 Aspirin (Aspirin) 81 mg DAILY PO Last administered on 01/16/17 07:11; Admin Dose 81 MG; Start 01/14/17 at 09:00 Nitroglycerin (Nitroglycerin (Sl Tab) 0.4 Mg) 1 tab Q5M PRN SL CHEST PAIN Last administered on 01/16/17 11:49; Admin Dose 1 TAB; Start 01/14/17 at 02:30 Acetaminophen (Tylenol Tab) 650 mg Q6H PRN PO PAIN LEVEL 1-3 OR FEVER Last administered on 01/16/17 11:28; Admin Dose 650 MG; Start 01/14/17 at 02:30 Acetaminophen/ Hydrocodone Bitart ([place] (5/325)) 1 tab Q6H PRN PO PAIN LEVEL 4 -6 Last administered on 01/16/17 05:39; Admin Dose 1 TAB; Start 01/14/17 at 02: 30 Zolpidem Tartrate (Ambien) 5 mg QHS PRN PO INSOMNIA; Start 01/14/17 at 02:30 Docusate Sodium (Colace) 100 mg Q12H PRN PO CONSTIPATION; Start 01/14/17 at 02: 30 Famotidine (Pepcid) 20 mg Q12 PO Last administered on 01/16/17 09:09; Admin Dose 20 MG; Start 01/14/17 at 02:30 Enoxaparin Sodium (Lovenox) 40 mg DAILY SC Last administered on 01/16/17 09:16 ; Admin Dose 40 MG; Start 01/14/17 at 09:00 Diagnostic Test (Pha) (Accu-Chek) 1 ea 02 XX Last administered on 01/15/17 02: 05; Admin Dose 1 EA; Start 01/15/17 at 02:00 Insulin Glargine (Lantus) 20 unit HS SC Last administered on 01/15/17 20:37; Admin Dose 20 UNIT; Start 01/14/17 at 21:00 Atorvastatin Calcium (Lipitor) 20 mg HS PO Last administered on 01/15/17 20:23 ; Admin Dose 20 MG; Start 01/14/17 at 21:00 Clonidine (Catapres) 0.1 mg BID PO Last administered on 01/16/17 09:09; Admin Dose 0.1 MG; Start 01/14/17 at 09:00 Isosorbide Mononitrate (Imdur) 30 mg DAILY PO Last administered on 01/16/17 09 :08; Admin Dose 30 MG; Start 01/15/17 at 16:30 Metoprolol Tartrate (Lopressor) 25 mg BID PO Last administered on 01/16/17 09: 08; Admin Dose 25 MG; Start 01/15/17 at 21:00 Losartan Potassium (Cozaar) 100 mg DAILY PO ; Start 01/17/17 at 09:00 Amlodipine Besylate (Norvasc) 10 mg DAILY PO Last administered on 01/16/17 10: 23; Admin Dose 10 MG; Start 01/16/17 at 09:30 KARINA MARADIAGA Jan 16, 2017 12:42
[2017-01-16] MEDS ORDERED: REGADENOSON 0.4 MG/5 ML SYG ONE (13:40)
--- NOTE | 2017-01-16 16:00 | CARRPT ---
DATE OF PROCEDURE: 01/16/2017 LEXISCAN CARDIAC STRESS TEST REASON FOR STRESS TESTING: Chest pain, assess for ischemia. BASELINE VITAL SIGNS AND ELECTROCARDIOGRAM: Pulse 83, blood pressure 160/86. Electrocardiogram rev eals normal sinus rhythm, rate 85, normal axis, normal intervals, with T-wave flattening in inferior leads. PROCEDURE IN DETAIL: The patient underwent standard Lexiscan infusion over 10 seconds followed by r adiolabeled tracer. The patient's test was stopped due to completion of protocol. Maximal achieved blood pressure during the test 159/88. Maximum heart rate during the test 116. ELECTROCARDIOGRAM FINDINGS: The patient did not develop any new Lexiscan-induced ST or T-wave villalba es from baseline abnormalities. No documented PVCs. SYMPTOMS: The patient had no complaints of chest pain, shortness of breath but had nausea and vomit ing. IMPRESSION: 1. No Lexiscan-induced ST or T-wave changes from baseline abnormalities diagnostic for ischemia. 2. No complaints of chest pain or shortness of breath during stress testing. Positive nausea and v omiting, resolved in recovery. 3. No documented premature ventricular contractions during stress testing. 4. Report of nuclear images to follow in separate dictation. Dictated By: SARITHA COULTER/MIKAYLA Conf#: [id number] DID#: [id number] CC: MAGED BOWER MD; KARINA MARADIAGA MD;*End*
--- NOTE | 2017-01-16 16:49 | RADRPT ---
PROCEDURE: Lexiscan myocardial perfusion study CLINICAL INDICATION: 51 -year-old patient complaining of chest pain. TECHNIQUE: Lexiscan 0.4 mg intravenously separate acquisition gated myocardial perfusion SPECT usi ng Tc 99m Myoview 30.2 mCi intravenously at stress and Tc-99m Myoview, 9.7 mCi intravenously at rest was performed using the rest/stress sequence. Poststress Myoview SPECT images were obtained in the supine position. COMPARISON: No prior studies. FINDINGS: Perfusion images reveal no evidence of perfusion defects. Lexiscan post stress gated SPECT images demonstrate no wall motion abnormalities. IMPRESSION: 1. Normal study with no evidence of perfusion defects or wall motion abnormalities. 2. The left ventricle ejection fraction at stress is greater than 70%. A call report was made to Dr. Hilton at 04:46 p.m. on January 16, 2017. RPTAT: HH .Sarah Nieto MD, Date Time Electronically viewed and signed by .Sarah Nieto MD, MD on 01/16/2017 16:48 .L/
[2017-01-16] MEDS: hydrALAzine 20 MG INJ IV PRN (19:22)
[2017-01-16 19:49] LABS: CALCIUM 9.4 mg/dl (8.4-10.2); CREATININE 0.45 mg/dl (0.44-1.00); MAGNESIUM 1.3 mg/dl (1.7-2.5); POTASSIUM 3.3 mmol/L (3.5-5.1)
[2017-01-16] MEDS: ATORVASTATIN 20 MG TAB PO SCH (20:27)
[2017-01-16] MEDS: INSULIN GLARGINE [LANtus] 3 ML PEN SC SCH (20:34)
[2017-01-17] VITALS (14 sets, daily range): BP systolic 97–175; BP diastolic 51–85; PULSE 35–100; RESP 16–22
[2017-01-17] MEDS: ACCU-CHEK XX SCH (02:00)
[2017-01-17] MEDS: hydrALAzine 20 MG INJ IV PRN (06:18)
[2017-01-17 07:48] LABS: INR 1.03; PROTIME 13.5 Sec (12.2-14.2); PT RATIO 1.1
[2017-01-17] MEDS: INSULIN ASPART [NOVOLOG] 3 ML PEN SC SCH ×3 (08:20→17:55)
[2017-01-17] MEDS: ASPIRIN 81 MG TAB PO SCH (08:38)
[2017-01-17] MEDS: metFORMIN 850 MG TAB PO SCH ×2 (08:39→17:45)
[2017-01-17] MEDS: ISOSORBIDE MONONITRATE(SR)30 MG TAB PO SCH (08:40)
[2017-01-17] MEDS: FAMOTIDINE 20 MG TAB PO SCH ×2 (08:41→21:17)
[2017-01-17] MEDS: AMLODIPINE 10 MG TAB PO SCH (08:42)
[2017-01-17] MEDS: ACETAMINOPHEN 325 MG TAB PO PRN ×2 (08:44→19:06)
[2017-01-17] MEDS: ENOXAPARIN 40 MG/0.4 ML SYG SC SCH (08:50)
[2017-01-17] MEDS ORDERED: LOSARTAN 50 MG TAB PO SCH ×2 (09:00→21:00)
[2017-01-17] MEDS ORDERED: POTASSIUM CHLORIDE (SR) 20 MEQ TAB PO STA ×2 (10:26→12:58)
[2017-01-17] MEDS ORDERED: MAGNESIUM SULFATE 4 GM/100 ML 100 ML IVPB ONE (11:00)
--- NOTE | 2017-01-17 12:58 | PN ---
Date/Time of Note Date/Time of Note DATE: 01/17/17 TIME: 12:30 Assessment/Plan VTE Prophylaxis VTE Prophylaxis Intervention: LMWH Lines/Catheters IV C[facility]ter Type (from [facility]): Saline Lock Urinary Cath still in place: No Assessment/Plan Assessment/Plan 51 yo female with: 1. Chest Pressure, patient still had an episode overnight and also reported 4.6 secs pause, hold b-block and stress test today. Stress test negative. Appreciate recs from Cardiology, BP control, avoiding B Block. Continue Statins and ASA Replete K and Mag. 2. Hypertension: continue current meds except Bblock and change Hydralazine to prn dosage 3. Hyperlipidemia: statins 4. Diabetes Mellitus: continue current meds, A1c 9.6 ADA diet Prophylaxis: Lovenox for DVT ppx and Pepcid for GI ppx Disposition: Discharge planning later today after electrolytes repleted and if blood pressure stable on current regimen. Subjective 24 Hr Interval Summary Free Text/Dictation Patient remained stable, stress test is negative, however a few hours ago, she was noted to be borderline hypotensive with systolic blood pressures in the 90s. Yesterday afternoon her systolic blood pressure was running in the 190s but it is unclear if it was after having her blood pressure medication held for part of the day. We will discontinue scheduled hydralazine for now, she may only need it to twice daily versus 3 times daily, she can have it as needed at home. Discharge planning later this afternoon if blood pressure stable. Exam/Review of Systems Vital Signs Vitals Vital Signs Date Time Temp Pulse Resp B/P Pulse Ox O2 Delivery O2 Flow Rate FiO2 01/17/17 12:16 98.4 84 19 99/56 94 01/14/17 01:10 Room Air Intake and Output 01/16/17 01/16/17 01/17/17 15:00 23:00 07:00 Intake Total 580 ml 400 ml Balance 580 ml 400 ml Exam Constitutional: alert, oriented, well developed Respiratory: clear to auscultation, normal air movement Cardiovascular: nl pulses, regular rate and rhythm Gastrointestinal: non-tender, soft Musculoskeletal: nl extremities to inspection, nl gait and stance Neurological: TYPEWRITER RIBBON WINDER II-XII intact, nl mental status, nl speech, nl strength Results Result Diagram: 01/15/17 0549 01/16/17 0484 Results 24 hrs Laboratory Tests Test 01/16/17:58 01/16/17 18:54 01/16/17 20:19 01/17/17 06:59 Bedside Glucose 167 140 Sodium Level 137 Potassium Level 3.3 L Chloride Level 101 Carbon Dioxide Level 23 Anion Gap 16 Blood Urea Nitrogen 7 Creatinine 0.45 Glucose Level 173 Calcium Level 9.4 Magnesium Level 1.3 L Prothrombin Time 13.5 Prothrombin Time Ratio 1.1 INR International Normalized Ratio 1.03 Activated Partial Thromboplast Time 36.0 H Test 01/17/17 08:18 01/17/17 12:07 Bedside Glucose 176 136 Medications Medications Current Medications Ondansetron HCl (Zofran Tab) 4 mg Q6H PRN PO NAUSEA AND/OR VOMITING Last administered on 01/16/17 09:20; Admin Dose 4 MG; Start 01/14/17 at 02:30 Aspirin (Aspirin) 81 mg DAILY PO Last administered on 01/17/17 08:38; Admin Dose 81 MG; Start 01/14/17 at 09:00 Nitroglycerin (Nitroglycerin (Sl Tab) 0.4 Mg) 1 tab Q5M PRN SL CHEST PAIN Last administered on 01/16/17 11:49; Admin Dose 1 TAB; Start 01/14/17 at 02:30 Acetaminophen (Tylenol Tab) 650 mg Q6H PRN PO PAIN LEVEL 1-3 OR FEVER Last administered on 01/17/17 08:44; Admin Dose 650 MG; Start 01/14/17 at 02:30 Zolpidem Tartrate (Ambien) 5 mg QHS PRN PO INSOMNIA; Start 01/14/17 at 02:30 Docusate Sodium (Colace) 100 mg Q12H PRN PO CONSTIPATION; Start 01/14/17 at 02: 30 Famotidine (Pepcid) 20 mg Q12 PO Last administered on 01/17/17 08:41; Admin Dose 20 MG; Start 01/14/17 at 02:30 Enoxaparin Sodium (Lovenox) 40 mg DAILY SC Last administered on 01/17/17 08: 50; Admin Dose 40 MG; Start 01/14/17 at 09:00 Diagnostic Test (Pha) (Accu-Chek) 1 ea 02 XX Last administered on 01/15/17 02: 05; Admin Dose 1 EA; Start 01/15/17 at 02:00 Insulin Glargine (Lantus) 20 unit HS SC Last administered on 01/16/17 20:34; Admin Dose 20 UNIT; Start 01/14/17 at 21:00 Atorvastatin Calcium (Lipitor) 20 mg HS PO Last administered on 01/16/17 20:27 ; Admin Dose 20 MG; Start 01/14/17 at 21:00 Clonidine (Catapres) 0.1 mg BID PO Last administered on 01/17/17 08:41; Admin Dose 0.1 MG; Start 01/14/17 at 09:00 Isosorbide Mononitrate (Imdur) 30 mg DAILY PO Last administered on 01/17/17 08:40; Admin Dose 30 MG; Start 01/15/17 at 16:30 Losartan Potassium (Cozaar) 100 mg DAILY PO Last administered on 01/17/17 08: 43; Admin Dose 100 MG; Start 01/17/17 at 09:00 Amlodipine Besylate (Norvasc) 10 mg DAILY PO Last administered on 01/17/17 08 :42; Admin Dose 10 MG; Start 01/16/17 at 09:30 Hydralazine HCl (Apresoline) 25 mg Q8 PO Last administered on 01/17/17 05:13 ; Admin Dose 25 MG; Start 01/16/17 at 22:00 Hydralazine HCl 10 mg 10 mg Q4H PRN IV SBP>170 Last administered on 01/17/17 06:18; Admin Dose 10 MG; Start 01/16/17 at 18:00 Magnesium Sulfate (Magnesium Sulfate 4 Gm/100 ml) 100 ml @ 25 mls/hr ONCE ONCE IVPB Last administered on 01/17/17 11:48; Admin Dose 25 MLS/HR; Start 01/17/17 at 11:00; Stop 01/17/17 at 14:59 KARINA MARADIAGA Jan 17, 2017 12:40
[2017-01-17] MEDS ORDERED: AMLO-147 PO (13:00)
[2017-01-17] MEDS ORDERED: ISOS30TA5 PO (13:00)
[2017-01-17] MEDS ORDERED: SOD CHLORIDE 0.9% 500 ML IV ONE (18:00)
[2017-01-17] MEDS: ATORVASTATIN 20 MG TAB PO SCH (21:18)
[2017-01-17] MEDS: LOSARTAN 50 MG TAB PO SCH (21:18)
[2017-01-17] MEDS: INSULIN GLARGINE [LANtus] 3 ML PEN SC SCH (21:22)
[2017-01-18] VITALS (8 sets, daily range): BP systolic 89–126; BP diastolic 55–64; PULSE 69–75; RESP 15–19
[2017-01-18] MEDS: ACCU-CHEK XX SCH (02:00)
[2017-01-18 07:29] LABS: BASOPHILS % 0.3 % (0.0-2.0); EOSINOPHILS % 0.3 % (0.0-7.0); HEMATOCRIT 41.1 % (37.0-47.0); HEMOGLOBIN 13.2 g/dl (12.0-16.0); LYMPHOCYTES # 3.4 10^3/ul (0.8-2.9); LYMPHOCYTES % 32.5 % (15.0-51.0); MEAN CORPUSCULAR HEMOGLOBIN 26.8 pg (29.0-33.0); MEAN CORPUSCULAR HGB CONC 32.1 g/dl (32.0-37.0); MEAN CORPUSCULAR VOLUME 83.4 fl (82.0-101.0); MEAN PLATELET VOLUME 10.2 fl (7.4-10.4); MONOCYTE # 0.7 10^3/ul (0.3-0.9); MONOCYTES % 6.4 % (0.0-11.0); NEUTROPHIL # 6.3 10^3/ul (1.6-7.5); NEUTROPHILS % 59.9 % (39.0-77.0); PLATELET COUNT 385 10^3/UL (140-415); RED BLOOD COUNT 4.93 10^6/ul (4.20-5.40); RED CELL DISTRIBUTION WIDTH 15.9 % (11.5-14.5); WHITE BLOOD COUNT 10.6 10^3/ul (4.8-10.8)
[2017-01-18 07:36] LABS: INR 0.96; PROTIME 12.8 Sec (12.2-14.2)
[2017-01-18 07:41] LABS: MAGNESIUM 2.4 mg/dl (1.7-2.5); PHOSPHORUS 3.9 mg/dl (2.5-4.9)
[2017-01-18 07:44] LABS: PARTIAL THROMBOPLASTIN TIME 33.3 Sec (25.0-35.0)
[2017-01-18 07:52] LABS: CALCIUM 8.9 mg/dl (8.4-10.2); CREATININE 0.71 mg/dl (0.44-1.00)
[2017-01-18] MEDS: metFORMIN 850 MG TAB PO SCH (07:55)
[2017-01-18] MEDS: ASPIRIN 81 MG TAB PO SCH (08:11)
[2017-01-18] MEDS: ACETAMINOPHEN 325 MG TAB PO PRN (08:12)
[2017-01-18] MEDS: LOSARTAN 50 MG TAB PO SCH (08:13)
[2017-01-18] MEDS: FAMOTIDINE 20 MG TAB PO SCH (08:13)
[2017-01-18] MEDS: AMLODIPINE 10 MG TAB PO SCH (08:14)
[2017-01-18] MEDS: ENOXAPARIN 40 MG/0.4 ML SYG SC SCH (08:20)
[2017-01-18] MEDS: INSULIN ASPART [NOVOLOG] 3 ML PEN SC SCH ×2 (08:21→12:14)
--- NOTE | 2017-01-18 11:25 | PN ---
Date/Time of Note Date/Time of Note DATE: 01/18/17 TIME: 11:12 Assessment/Plan VTE Prophylaxis VTE Prophylaxis Intervention: LMWH Lines/Catheters IV Catheter Type (from Nrsg): Saline Lock Urinary Cath still in place: No Assessment/Plan Assessment/Plan 51 yo female with: 1. Chest Pressure, patient still had an episode overnight and also reported 4.6 secs pause, hold b-block and stress test today. Stress test negative. Appreciate recs from Cardiology, BP control, avoiding B Block. Continue Statins and ASA RAMIREZ and nausea with Imdur/Nitro, since d/c BP better and RAMIREZ resolved 2. Hypertension: continue current meds except Bblock and Imdur, also changed Hydralazine to prn dosage which hasn't been needed over past 24 hrs 3. Hyperlipidemia: statins 4. Diabetes Mellitus: continue current meds/resume home meds, A1c 9.6 ADA diet Prophylaxis: Lovenox for DVT ppx and Pepcid for GI ppx Disposition: D/c home this AM with PCP follow up within 2 to 3 days for BP meds further adjustment as needed. Subjective 24 Hr Interval Summary Free Text/Dictation Patient had to be kept overnight due to hypotension, nausea and vomiting x 1 S/p 500cc NS bolus last night and BP meds adjusted BP better this AM and will d/c home with PCP follow up Exam/Review of Systems Vital Signs Vitals Vital Signs Date Time Temp Pulse Resp B/P Pulse Ox O2 Delivery O2 Flow Rate FiO2 01/18/17 08:26 72 01/18/17 07:45 98.4 19 121/64 98 Intake and Output 01/17/17 01/17/17 01/18/17 15:00 23:00 07:00 Intake Total 500 ml 450 ml Output Total 400 ml Balance 100 ml 450 ml Exam Constitutional: alert, oriented, well developed Cardiovascular: nl pulses, regular rate and rhythm Gastrointestinal: non-tender, soft Musculoskeletal: nl extremities to inspection, nl gait and stance Extremities: normal pulses Neurological: [employer] II-XII intact, nl mental status, nl speech, nl strength Results Result Diagram: 01/18/17 0639 01/18/17 0639 Results 24 hrs Laboratory Tests Test 01/17/17 12:07 01/17/17 17:42 01/17/17 20:51 01/18/17 06:39 Bedside Glucose 136 109 153 White Blood Count 10.6 # Red Blood Count 4.93 Hemoglobin 13.2 Hematocrit 41.1 Mean Corpuscular Volume 83.4 Mean Corpuscular Hemoglobin 26.8 L Mean Corpuscular Hemoglobin Concent 32.1 Red Cell Distribution Width 15.9 H Platelet Count 385 # Mean Platelet Volume 10.2 Neutrophils % 59.9 Lymphocytes % 32.5 Monocytes % 6.4 Eosinophils % 0.3 Basophils % 0.3 Nucleated Red Blood Cells % 0.0 Neutrophils # 6.3 Lymphocytes # 3.4 H Monocytes # 0.7 Eosinophils # 0.0 Basophils # 0.0 Nucleated Red Blood Cells # 0.0 Prothrombin Time 12.8 Prothrombin Time Ratio 1.0 INR International Normalized Ratio 0.96 Activated Partial Thromboplast Time 33.3 Sodium Level 136 Potassium Level 4.0 Chloride Level 105 Carbon Dioxide Level 23 Anion Gap 12 Blood Urea Nitrogen 19 # Creatinine 0.71 Glucose Level 148 Calcium Level 8.9 Phosphorus Level 3.9 Magnesium Level 2.4 # Test 01/18/17 08:10 Bedside Glucose 185 Medications Medications Current Medications Ondansetron HCl (Zofran Tab) 4 mg Q6H PRN PO NAUSEA AND/OR VOMITING Last administered on 01/16/17 09:20; Admin Dose 4 MG; Start 01/14/17 at 02:30 Aspirin (Aspirin) 81 mg DAILY PO Last administered on 01/18/17 08:11; Admin Dose 81 MG; Start 01/14/17 at 09:00 Nitroglycerin (Nitroglycerin (Sl Tab) 0.4 Mg) 1 tab Q5M PRN SL CHEST PAIN Last administered on 01/16/17 11:49; Admin Dose 1 TAB; Start 01/14/17 at 02:30 Acetaminophen (Tylenol Tab) 650 mg Q6H PRN PO PAIN LEVEL 1-3 OR FEVER Last administered on 01/18/17 08:12; Admin Dose 650 MG; Start 01/14/17 at 02:30 Zolpidem Tartrate (Ambien) 5 mg QHS PRN PO INSOMNIA; Start 01/14/17 at 02:30 Docusate Sodium (Colace) 100 mg Q12H PRN PO CONSTIPATION; Start 01/14/17 at 02: 30 Famotidine (Pepcid) 20 mg Q12 PO Last administered on 01/18/17 08:13; Admin Dose 20 MG; Start 01/14/17 at 02:30 Enoxaparin Sodium (Lovenox) 40 mg DAILY SC Last administered on 01/18/17 08: 20; Admin Dose 40 MG; Start 01/14/17 at 09:00 Diagnostic Test (Pha) (Accu-Chek) 1 ea 02 XX Last administered on 01/15/17 02: 05; Admin Dose 1 EA; Start 01/15/17 at 02:00 Insulin Glargine (Lantus) 20 unit HS SC Last administered on 01/17/17 21:22; Admin Dose 20 UNIT; Start 01/14/17 at 21:00 Atorvastatin Calcium (Lipitor) 20 mg HS PO Last administered on 01/17/17 21: 18; Admin Dose 20 MG; Start 01/14/17 at 21:00 Clonidine (Catapres) 0.1 mg BID PO Last administered on 01/18/17 08:12; Admin Dose 0.1 MG; Start 01/14/17 at 09:00 Amlodipine Besylate (Norvasc) 10 mg DAILY PO Last administered on 01/18/17 08 :14; Admin Dose 10 MG; Start 01/16/17 at 09:30 Hydralazine HCl (Apresoline) 10 mg Q4H PRN IV SBP>170 Last administered on 06:18; Admin Dose 10 MG; Start 01/16/17 at 18:00 Hydralazine HCl (Apresoline) 25 mg Q8H PRN PO for SBP ABOVE 150; Start at 13:00 Losartan Potassium (Cozaar) 50 mg BID PO Last administered on 01/18/17 08:13 ; Admin Dose 50 MG; Start 01/17/17 at 21:00 KARINA MARADIAGA Jan 18, 2017 11:25
--- NOTE | 2017-01-19 13:43 | RADRPT ---
Vent Rate: 66 bpm RR Interval: 0 msec GA Interval: 194 msec QRS Duration: 82 msec QT Interval: 436 msec QTC Interval: 457 msec P-R-T [place]: 40 - -44 - 22 degrees Normal sinus rhythm Left axis deviation Possible Anterolateral infarct , age undetermined Abnormal ECG Electronically Signed By: Juan Campo [id number]
--- NOTE | 2017-01-19 13:45 | RADRPT ---
Vent Rate: 62 bpm RR Interval: 0 msec [place] Interval: 188 msec QRS Duration: 84 msec QT Interval: 440 msec QTC Interval: 446 msec P-R-T [place]: 42 - -53 - 27 degrees Normal sinus rhythm Left axis deviation Possible Anterior infarct , age undetermined Abnormal ECG Electronically Signed By: Juan Campo [id number]
--- NOTE | 2017-01-20 15:53 | RADRPT ---
Vent Rate: 81 bpm RR Interval: 0 msec [place] Interval: 212 msec QRS Duration: 88 msec QT Interval: 418 msec QTC Interval: 485 msec P-R-T [place]: 40 - -44 - 37 degrees Sinus rhythm with 1st degree AV block Left axis deviation Possible Anterior infarct , age undetermined Abnormal ECG Electronically Signed By: Bronson Pena [id number]
== END 2017-01-18 14:00 | disposition home or self-care (01) | DRG 206 ==
LOC: INTOOBSV 01-14 01:10 → TEL 01-14 01:10 → OBSVTOIN 01-17 12:42
PROVIDERS: ADMIT Internal Medicine; ATTEND Internal Medicine
DX: M94.0 Chondrocostal junction syndrome [Tietze] (principal); I10 Essential (primary) hypertension; I16.1 Hypertensive emergency; I16.0 Hypertensive urgency; E11.9 Type 2 diabetes mellitus without complications; E78.5 Hyperlipidemia, unspecified; R07.89 Other chest pain; Z79.4 Long term (current) use of insulin; Z79.84 Long term (current) use of oral hypoglycemic drugs; Z79.82 Long term (current) use of aspirin
CPT/HCPCS: 78452; 80048; 80061; 81001; 82550; 82553; 82962; 83036; 83735; 83880; 84100; 84443; 84484; 85025; 85378; 85610; 85651; 85730; 93005; 93017; 93306; G0378; A9500; A9505; J0360; J1650; J1815; J2785; J7040

== ENCOUNTER 2017-09-23 19:12 | Emergency (ER) | END 2017-09-23 21:31 | disposition home or self-care (01) ==

== ENCOUNTER 2018-04-16 17:44 | Emergency (ER) | payer SELFPAY ==
[~2018-04-16] VITALS: Ht 167.6 cm; Wt 65.8 kg
[~2018-04-16 17:44] MED LIST: AMLO-147 PO; ASPI-817 PO; ATOR20TA38 PO; CLON-379 PO; IBUP-1542 PO; INSU100C SQ; LANT3I SC; LOSA50TA7 PO; METF850T13 PO; NITR0.4T32 SL
[2018-04-16 17:49] VITALS: BP 139/73; PULSE 106; RESP 20; Ht 167.6 cm; Wt 65.8 kg
== END 2018-04-17 00:05 | disposition left against medical advice (07) ==
LOC: FTE 17:44
DX: Z53.21 Procedure and treatment not carried out due to patient leaving prior to being seen by health care provider (principal)

== ENCOUNTER 2018-10-14 23:33 | Emergency (ER) | payer SELFPAY ==
[~2018-10-14] VITALS: Ht 152.4 cm; Wt 67.3 kg
[~2018-10-14 23:33] MED LIST changes: +LOSA50TA14 PO; -LOSA50TA7 PO
[2018-10-14 23:39] VITALS: BP 200/90; PULSE 79; RESP 16; Ht 152.4 cm; Wt 67.3 kg
== END 2018-10-15 00:53 | disposition left against medical advice (07) ==
LOC: E/R 23:33
DX: Z53.21 Procedure and treatment not carried out due to patient leaving prior to being seen by health care provider (principal)
CPT/HCPCS: 93005

== ENCOUNTER 2019-02-13 02:22 | Emergency (ER) | payer OTHER ==
[~2019-02-13] VITALS: Ht 154.9 cm; Wt 66.1 kg
[~2019-02-13 02:22] MED LIST changes: +CEPH-443 PO; +CHOL100062 PO; +LOSA25TA12 PO; +METF100010 PO; +METO-336 PO
[2019-02-13 02:28] VITALS: Ht 154.9 cm; Wt 66.1 kg
[2019-02-13] MEDS ORDERED: ENALAPRILAT 1.25 MG INJ IV ONE (03:30)
[2019-02-13] MEDS ORDERED: KETOROLAC 15 MG INJ IV STA (03:30)
[2019-02-13] MEDS ORDERED: ONDANSETRON 4 MG INJ IV STA (03:30)
[2019-02-13] MEDS ORDERED: LACTATED RINGER'S 1,000 ML IV STA (03:30)
[2019-02-13] MEDS ORDERED: CEFTRIAXONE 1 GM/50 ML (PMX) 50 ML IVPB ONE (04:30)
[2019-02-13 05:55] VITALS: BP 132/59; PULSE 77; RESP 16
== END 2019-02-13 05:55 | disposition home or self-care (01) ==
LOC: E/R 02:22
DX: I10 Essential (primary) hypertension (principal); N39.0 Urinary tract infection, site not specified; E11.9 Type 2 diabetes mellitus without complications; R40.2142 Coma scale, eyes open, spontaneous, at arrival to emergency department; R40.2252 Coma scale, best verbal response, oriented, at arrival to emergency department; R40.2362 Coma scale, best motor response, obeys commands, at arrival to emergency department; Z79.4 Long term (current) use of insulin; Z79.82 Long term (current) use of aspirin
CPT/HCPCS: 36415; 71045; 80053; 81001; 83690; 84484; 85025; 93005; 96365; 96375; J0696; J1885; J2405; J7120; Z7502; Z7610